=== PATIENT | female | born 1995 | race Caucasian/White ===

== ENCOUNTER 2022-06-25 08:34 | Emergency (ER) | payer BC, SELFPAY ==
--- NOTE | 2022-06-25 08:40 | ED.SKABFB ---
HPI - Skin/Abscess/Foreign Bdy General Chief complaint: Skin/Abscess/Foreign Body Stated complaint: RED SPOT ON NOSE & EAR Time Seen by Provider: 06/25/22 08:40 Source: patient and RN notes reviewed History of Present Illness HPI narrative: Patient is a 26-year-old female who presents the urgent care with complaints of a red spot to the left side of the nose and on the left ear. Patient states she noticed it yesterday and was taking Claritin due to some of the swelling and redness. Patient denies of any fevers, nausea or vomiting. States that she does feel like there is some swelling under the left eye as well as tenderness. Patient states she does suffer from acne but tends to have it under control. States that the only recent change in facial products was using some of her old adapalene to the nose a couple nights ago. Patient states that she is mostly concerned with the area because she is getting on Wednesday. No other acute complaints. No acute distress noted. Patient aware of the plan of care. Some parts of this dictation were generated by voice recognition software and may contain typographical and/or grammatical inaccuracies. Related Data Allergies Allergy/AdvReac Type Severity Reaction Status Date / Time nut - unspecified Allergy Anaphylaxis Verified 06/25/22 08:50 Review of Systems Review of Systems: CONSTITUTIONAL: Denies fever, chills, or sweats. EYES: Denies visual changes, redness, or discharge. ENT: Denies rhinorrhea, congestion, sore throat, or otalgia. CARDIOVASCULAR: Denies chest pain, palpitations, or edema. RESPIRATORY: Denies cough or dyspnea. GASTROINTESTINAL: Denies abdominal pain, nausea, vomiting, or diarrhea. GENITOURINARY: Denies dysuria or hematuria. SKIN: Reports of a painful sore to the left side of the nose and on the left ear MUSCULOSKELETAL: Denies back pain, joint pain, or myalgia. NEUROLOGIC: Denies headache, numbness, or weakness. All other systems reviewed are negative, except as documented in HPI. [facility] Social History Social History (Updated 09/04/19 @ 13:29 by La Nena Johnston, [employer]) Smoking status: Never smoker Alcohol intake: current Alcohol use details: Social Substance use: never Gender identity (if verbalized by the patient): Female Spiritual care concerns: No Comments At the time of my signature, I reviewed and agree with the nursing past medical, surgical, social, and family history. There is no relevant family history pertinent to the patient complaint. Exam Narrative: GENERAL: This is a well-nourished, well-developed patient, in no apparent distress. HEAD: normocephalic, atraumatic. EYES: PERRL. Sclera clear/white. Vision is grossly intact. EARS: External ears normal NOSE: External nose normal with no obvious nasal discharge, nares without redness, no rhinorrhea. THROAT: Mucous membranes moist NECK: Neck supple SKIN: 0.25 circular nonraised cystic acne vulgaris noted to the left side of the nose with tenderness and surrounding erythema. 0.25 circular raised cystic acne vulgaris noted to the left ear with surrounding erythema, tenderness and NEURO: awake, alert, and oriented to person, place and time. There were no obvious focal neurologic abnormalities. EXTREMITIES: No clubbing, cyanosis, or edema. Course Course Level of Care: Express Care Visit Vital Signs Vital signs: Vital Signs Temperature 98.7 F 06/25/22 08:43 Pulse Rate 95 06/25/22 08:43 Respiratory Rate 20 06/25/22 08:43 Blood Pressure 123/82 06/25/22 08:43 Pulse Oximetry 100 06/25/22 08:43 Temperature 98.7 F 06/25/22 08:43 Pulse Rate 95 06/25/22 08:43 Respiratory Rate 20 06/25/22 08:43 Blood Pressure 123/82 06/25/22 08:43 Pulse Oximetry 100 06/25/22 08:43 Reviewed MDM - Skin/Abscess/Foreign Bdy MDM Narrative Medical decision making narrative: Advised the patient to stop rubbing and touching the areas. Try to keep your hands off your face.
[2022-06-25 08:43] VITALS: BP 123/82; PULSE 95; RESP 20; TEMP 37.1; O2SAT 100
== END 2022-06-25 09:00 | disposition home or self-care (01) ==
PROVIDERS: Emergency Provider Nurse Practitioner Family
DX: L70.0 Acne vulgaris (principal)
CPT/HCPCS: 99213; G0463

== ENCOUNTER 2022-09-12 15:46 | Emergency (ER) | payer BC, SELFPAY ==
[2022-09-12 16:44] VITALS: BP 120/75; PULSE 79; RESP 16; TEMP 36.9; O2SAT 100
--- NOTE | 2022-09-12 16:54 | ED.EAR ---
HPI - Ear Problem General Chief complaint: Ear Stated complaint: ear pressure,vertigo Time Seen by Provider: 09/12/22 16:55 Source: patient Mode of arrival: ambulatory Limitations: no limitations History of Present Illness HPI Narrative: 26 y/o female presented for c/o bilateral ear pressure and dizziness worsening over the last2 days. Endorses nausea and headache at onset, and has had some tinnitus. Dizziness is described as room spinning, not always affected by head positions. She has taken 3 negative home covid tests. Taking Sudafed at times, along with tylenol and vaporizer for symptoms. Endorses history of ear pressure, but never this bad, and is scheduled to see ENT 10/01/22. MD Complaint: ear pain Related Data Allergies Allergy/AdvReac Type Severity Reaction Status Date / Time nut - unspecified Allergy Anaphylaxis Verified 06/25/22 08:50 Review of Systems Review of Systems: CONSTITUTIONAL: Denies malaise, chills, or fever. EYES: Denies visual changes, redness, or discharge. ENT: Denies sinus pain, and sore throat. Reports ear pain CARDIOVASCULAR: Denies chest pain, palpitations, or edema. RESPIRATORY: Denies cough or dyspnea. GASTROINTESTINAL: Denies abdominal pain, nausea, vomiting, diarrhea SKIN: Denies rash or itching. MUSCULOSKELETAL: Denies myalgia. All systems reviewed & are unremarkable except as noted in HPI and below PMFSH Social History Social History Smoking status: Never smoker Alcohol intake: current Alcohol use details: Social Substance use: never Gender identity (if verbalized by the patient): Female Spiritual care concerns: No Comments At time of signature, agree with nursing past medical, surgical, social and family history. There is no relevant family history pertinent to the presenting complaint Exam Narrative: GENERAL: Well-appearing, well-nourished, and in no acute distress. HEAD: Normocephalic EYES: PERRLA, conjunctivae clear ENT: Nares clear. Mucous membranes moist. TMs pearly mancia with dull light reflex and mild clear effusion bilaterally; no tragal tenderness. Oropharynx not erythematous without lesions. CHEST: Clear to auscultation, breath sounds equal. No wheezing, rhonchi, rales, or stridor. HEART: Regular rate and rhythm. No murmur heard. SKIN: Warm, dry, no rash. NEURO: Alert and oriented x3. PSYCH: Normal mood and affect Course Course Emergency Course: Patient is aware of diagnosis, understands and agrees to treatment plan. Anticipatory guidance given. Patient agrees to follow-up as directed and is aware of reasons to seek care at the emergency department. Portions of this record may have been created with voice recognition software Level of Care: Express Care Visit Vital Signs Vital signs: Vital Signs Temperature 98.4 F 09/12/22 16:44 Pulse Rate 79 09/12/22 16:44 Respiratory Rate 16 09/12/22 16:44 Blood Pressure 120/75 09/12/22 16:44 Pulse Oximetry 100 09/12/22 16:44 Temperature 98.4 F 09/12/22 16:44 Pulse Rate 79 09/12/22 16:44 Respiratory Rate 16 09/12/22 16:44 Blood Pressure 120/75 09/12/22 16:44 Pulse Oximetry 100 09/12/22 16:44 Reviewed Medical Decision Making MDM Narrative Medical decision making narrative: Reports some improvement in symptoms after meclizine. Advised supportive measures and signs/symptoms to go to the ER. Patient is appropriate for outpatient treatment and follow-up. Differential Diagnosis Differential Diagnosis: Coronavirus, strep pharyngitis, allergic rhinitis, upper respiratory tract infection, sinusitis, rhinosinusitis, nasopharyngitis, viral pharyngitis, otitis media, otitis externa, eustachian tube dysfunction, foreign body, cerumen impaction. Vital Signs Vital Signs: Vital Signs Temperature 98.4 F 09/12/22 16:44 Pulse Rate 79 09/12/22 16:44 Respiratory Rate 16 09/12/22 16:44 Blood Pressure 120/75 09/12/22 16:44
[2022-09-12] MEDS: MECLIZINE HCL 25 MG TABLET PO (17:09)
== END 2022-09-12 17:41 | disposition home or self-care (01) ==
PROVIDERS: Emergency Provider Nurse Practitioner Family
DX: R42 Dizziness and giddiness (principal)
CPT/HCPCS: 99213; A9270; G0463

== ENCOUNTER 2024-10-28 09:02 | Emergency (ER) | payer OTHER, BC, SELFPAY ==
--- OUTSIDE RECORDS SUMMARY | 2024-10-28 09:05 | XMS_ITS | Patient Health Summary ---
Author Organization [facility] Address [address] [place] [address] Care Team Providers Care [place] Operator Name Role Phone Courtney Loving RN Unavailable [phone] Leelee Browne MD Unavailable Note from [facility],non-owned Affiliates and Associated Physician Practices is amultiple site organization consisting of ambulatory clinics and hospital sitesin [place], [place], [place] and [place]. This disclosure is being madepursuant to the Care Everywhere program and may not contain all information available regarding this patient. Last updated 18.[facility] Allergies * Banana(Itching) * Peanut Butter Flavor(Anaphylaxis) -High Criticality * Tree Nuts(Anaphylaxis) -High Criticality Medications * Be aware that medications may not be up to date on this document. Alwaysverify current medications with the patient. * Loratadine (CLARITIN) 10 MG CAPS Take by mouth once daily. * ethyndiol diacetate-ethinyl estradiol (DEMULEN ; KELNOR ; ZOVIA ) 1-35 MG-MCG tablet(Started 12/17/2017) Take 1 tablet by mouth once daily * Melatonin 2.5 MG Take by mouth as needed * Cyanocobalamin (B-12 PO) Active Problems Problem Noted Date Diagnosed Date Migraine 06/08/2014 Allergic rhinitis 06/08/2014 Pyelonephritis, acute 05/29/2014 Social History Tobacco Use Types Packs/Day Years Used Date Smoking Tobacco: Never Smokeless Tobacco: Never Alcohol Use Standard Drinks/Week Comments No 0 (1 standard drink = 0.6 oz pur e alcohol) Sex and Gender Information Value Date Recorded Sex Assigned at Not on file Gender Identity Not on file Sexual Orientation Not on file Last Filed Vital Signs Vital Sign Reading Time Taken Comments Blood Pressure 116/64 07/01/2020 4:25 PM CDT Pulse 79 07/01/2020 4:25 PM CDT Temperature 36.8 C (98.2 F) 07/01/2020 4:25 PM CDT Respiratory Rate 16 07/01/2020 4:25 PM CDT Oxygen Saturation 98% 07/01/2020 4:25 PM CDT Inhaled Oxygen Concentration - - Weight 53.5 kg (118 lb) 07/01/2020 4:25 PM CDT Height 162.6 cm (5' 4 ) 07/01/2020 4:25 PM CDT Body Mass Index 20.25 07/01/2020 4:25 PM CDT Procedures * SKIN TEST PPD - POINT OF CARE(Performed 07/01/2020) Performed for PPD screening test * CULTURE RESPIRATORY UPPER(Performed 03/06/2019) Performed for Acute pharyngitis, unspecified etiology * STREP A SCREEN - POINT OF CARE (AMB) STL(Performed 03/06/2019) Performed for Acute pharyngitis, unspecified etiology * SKIN TEST PPD - POINT OF CARE(Performed 07/04/2018) Performed for Encounter for PPD test * URINALYSIS REFLEX TO MICROSCOPIC NO CULTURE(Performed 05/06/2015) * HCG BETA BLOOD QUANTITATIVE(Performed 05/06/2015) * COMPREHENSIVE METABOLIC PANEL(Performed 05/06/2015) * CBC W AUTO DIFFERENTIAL(Performed 05/06/2015) * URINALYSIS - POCT (IP) URGENT CARE(Performed 05/06/2015) * CULTURE URINE(Performed 05/06/2015) * URINALYSIS - POCT (IP) URGENT CARE(Performed 05/06/2015) * CULTURE URINE(Performed 04/23/2015) * URINALYSIS - POCT (IP) URGENT CARE(Performed 04/23/2015) * XR TIBIA FIBULA RIGHT 2VW(Performed 02/14/2015) Performed for Leg pain, right * HCG URINE QUALITATIVE - POCT (IP) URGENT CARE(Performed 02/14/2015) * URINALYSIS MICROSCOPIC ONLY REFLEXED(Performed 01/25/2015) Performed for Screening for diabetes mellitus, Routine general medical examination at a [facility] * URINALYSIS REFLEX MICROSCOPIC REFLEX CULTURE(Performed 01/25/2015) Performed for Screening for diabetes mellitus, Routine general medical examination at a [facility] * COMPREHENSIVE METABOLIC PANEL(Performed 01/25/2015) Performed for Screening for diabetes mellitus, Routine general medical examination at a [facility] * CBC W AUTO DIFFERENTIAL(Performed 01/25/2015) Performed for Screening for diabetes mellitus, Routine general medical examination at a [facility] * HEMOGLOBIN A1C(Performed 01/25/2015) Performed for Screening for diabetes mellitus, Routine general medical examination at a [facility] * TSH(Performed 01/25/2015) Performed for Screening for diabetes mellitus, Routine general medical examination at a [facility] * BASIC METABOLIC PANEL (CALCIUM TOTAL)(Performed 05/28/2014) * CULTURE URINE(Performed 05/27/2014) * CULTURE BLOOD(Performed 05/26/2014) * CULTURE BLOOD(Performed 05/26/2014) * CT ABDOMEN PELVIS W CONTRAST(Performed 05/26/2014) Performed for Abdominal pain, RLQ * HCG URINE QUALITATIVE(Performed 05/25/2014) * URINE MICROSCOPIC ONLY REFLEX TO CULTURE(Performed 05/25/2014) * URINALYSIS REFLEX MICROSCOPIC REFLEX CULTURE(Performed 05/25/2014) * CULTURE URINE(Performed 05/25/2014) * COMPREHENSIVE METABOLIC PANEL(Performed 05/25/2014) * CBC W AUTO DIFFERENTIAL(Performed 05/25/2014) Results * (ABNORMAL) SKIN TEST PPD - POINT OF CARE (07/01/2020 4:22 PM CDT) Only the most recent of2 resultswithin the time period is included. PPD 0mm(Negativ e) Other MISCELLANEOUS SAMPLE S / Unknown 07/01/2020 4:22 PM CDT Germaine Garcia APRN-IMPREGNATION OPERATOR LAB - POINT OF CA RE ORDERABLES * CULTURE RESPIRATORY UPPER (03/06/2019 9:25 AM CDT) Upper Respiratory Culture Final report [facility] ACCOUNT BILL Result 1 [facility] ACCOUNT BILL Comment:Routine respiratory armen Microbiology ENTIRE THROAT (SURFACE REGION OF NECK) / Unknown 03/06/2019 9:25 AM CDT 03/06/2019 Narrative Resulting Agency Comment Lab Testing performed at: [facility] [place] [address] [facility] [id number] Germaine Garcia APRN-IMPREGNATION OPERATOR LAB - MICROBIOLOG Y ORDERABLES [facility] ACCOUNT BILL [address] [place] [address] * STREP A SCREEN (03/06/2019 9:19 AM CDT) Strep A Rapid POCT Negative Negative Strep A Internal Control Present Lot # [id number] Expiration Date Throat ENTIRE THROAT (SURFACE REGION OF NECK) / Unknown 03/06/2019 9:19 AM CDT Germaine Garcia APRN-[facility] LAB - POINT OF CA RE ORDERABLES * (ABNORMAL) URINALYSIS ROUTINE AUTO (05/06/2015 1:04 PM CDT) Color UA Yellow Straw, Yellow, Dark Yellow 05/06/2015 1:46 PM CDT [facility] Clarity UA Cloudy 05/06/2015 1:46 PM CDT [facility] Specific [place] UA 1.018 1.005 - 1.030 05/06/2015 1:46 PM CDT [facility] pH UA 7.5 5.0 - 8.0 pH 05/06/2015 1:46 PM CDT [facility] Protein UA Negative Negative 05/06/2015 1:46 PM CDT [facility] Blood UA Negative Negative 05/06/2015 1:46 PM CDT [facility] Leukocyte UA 2+(A) Negative 05/06/2015 1:46 PM CDT [facility] Nitrite UA Negative Negative 05/06/2015 1:46 PM CDT [facility] Glucose UA Negative Negative 05/06/2015 1:46 PM CDT [facility] Ketone UA 1+(A) Negative 05/06/2015 1:46 PM CDT [facility] Bilirubin UA Negative Negative 05/06/2015 1:46 PM CDT [facility] Urobilinogen UA 0.2 0.1 - 1.0 EU/dL 05/06/2015 1:46 PM CDT [facility] WBC UA Auto 10-20(A) 0-2, 2-5 # /hpf 05/06/2015 1:46 PM CDT [facility] RBC UA Auto 2-5 0-2, 2-5 # /hpf 05/06/2015 1:46 PM CDT [facility] Epithelial Cell UA Auto 5-10(A) 0-2, 2-5 # /hpf 05/06/2015 1:46 PM CDT [facility] Bacteria UA Auto 1+(A) None seen 05/06/2015 1:46 PM CDT [facility] Hyaline Casts UA Auto 0-2 0 - 2 #/lpf 05/06/2015 1:46 PM CDT [facility] Urine URINE SPECIMEN OBTAINED BY CLEAN CATCH PROCEDURE / Unknown 05/06/2015 1:04 PM CDT 05/06/2015 1:09 PM CDT Yonis Chairez MD LAB - URINALYSIS ORD ERABLES [facility] [address] [place] [address] * (ABNORMAL) CBC W AUTO DIFFERENTIAL (05/06/2015 12:37 PM CDT) Only the most recent of3 resultswithin the time period is included. WBC 12.0(H) 4.4 - 10.7 x10^9/L 05/06/2015 12:44 PM CDT [facility] WBC Corrected x10^9/L 05/06/2015 12:44 PM CDT [facility] RBC 4.59 3.80 - 5.20 x10^12/L 05/06/2015 12:44 PM CDT [facility] Hemoglobin 13.7 12.0 - 15.6 gm/dL 05/06/2015 12:44 PM CDT [facility] Hematocrit 40.5 35.9 - 45.5 % 05/06/2015 12:44 PM CDT [facility] MCV 88.2 80.7 - 98.3 fl 05/06/2015 12:44 PM CDT [facility] MCH 29.8 26.7 - 34.0 pg 05/06/2015 12:44 PM [facility] MCHC 33.8 30.8 - 35.9 gm/dL 05/06/2015 12:44 PM [facility] Platelet Count 178 153 - 416 x10^9/L 05/06/2015 12:44 PM [facility] RDW-CV 12.5 12.1 - 14.9 % 05/06/2015 12:44 PM [facility] MPV 9.1(L) 9.4 - 12.9 fl 05/06/2015 12:44 PM [facility] Neutrophils % 83.7(H) 44.0 - 73.0 % 05/06/2015 12:44 PM [facility] Lymphocytes % 8.6(L) 20.0 - 43.0 % 05/06/2015 12:44 PM [facility] Monocytes % 5.9 5.0 - 13.0 % 05/06/2015 12:44 PM [facility] Eosinophils % 1.4 0.0 - 6.0 % 05/06/2015 12:44 PM [facility] Basophils % 0.2 0.0 - 2.0 % 05/06/2015 12:44 PM [facility] Immature Granulocytes 0.2 0 - 1 % 05/06/2015 12:44 PM [facility] Neutrophil Absolute 10.06(H) 2.01 - 7.14 x10^9/L 05/06/2015 12:44 PM [facility] Lymphocytes Absolute 1.03(L) 1.07 - 3.94 x10^9/L 05/06/2015 12:44 PM [facility] Monocytes Absolute 0.71 0.26 - 1.07 x10^9/L 05/06/2015 12:44 PM [facility] Eosinophils Absolute 0.17 0 - 0.47 x10^9/L 05/06/2015 12:44 PM [facility] Basophils Absolute 0.02 0 - 0.08 x10^9/L 05/06/2015 12:44 PM [facility] Immature Granulocytes Absolute 0.02 0.00 - 0.06 x10^9/L 05/06/2015 12:44 PM [facility] Blood BLOOD SPECIMEN / Unknown 05/06/2015 12:37 PM CDT 05/06/2015 12:39 PM CDT Yonis Chairez MD LAB - HEMATOLOGY ORD ERABLES [facility] [address] [place] [address] * (ABNORMAL) COMPREHENSIVE METABOLIC PANEL (05/06/2015 12:37 PM CDT) Only the most recent of3 resultswithin the time period is included. [facility] [address] Glucose 86 74 - 106 mg/dL 05/06/2015 12:58 PM CDT [facility] Sodium 135(L) 136 - 145 mmol/L 05/06/2015 12:58 PM CDT [facility] Potassium 3.8 3.5 - 5.1 mmol/L 05/06/2015 12:58 PM CDT [facility] Chloride 101 98 - 107 mmol/L 05/06/2015 12:58 PM CDT [facility] CO2 27 22 - 31 mmol/L 05/06/2015 12:58 PM CDT [facility] Calcium 9.6 8.5 - 10.1 mg/dL 05/06/2015 12:58 PM CDT [facility] Anion Gap 7 5 - 20 mmol/L 05/06/2015 12:58 PM CDT [facility] BUN 8 7 - 21 mg/dL 05/06/2015 12:58 PM CDT [facility] Creatinine 0.73 0.50 - 1.30 mg/dL 05/06/2015 12:58 PM CDT [facility] Alkaline Phosphatase 60 38 - 126 U/L 05/06/2015 12:58 PM CDT [facility] ALT 22 12 - 78 U/L 05/06/2015 12:58 PM CDT [facility] AST 17 5 - 40 U/L 05/06/2015 12:58 PM CDT [facility] Protein Total 7.8 6.4 - 8.2 gm/dL 05/06/2015 12:58 PM CDT [facility] Albumin 3.9 3.4 - 5.0 gm/dL 05/06/2015 12:58 PM CDT [facility] Bilirubin Total 0.9 0.2 - 1.0 mg/dL 05/06/2015 12:58 PM CDT [facility] eGFR by MDRD >60 >60 mL/min/1.7 3m2 05/06/2015 12:58 PM CDT [facility] eGFR by MDRD >60 >60 mL/min/1.7 3m2 05/06/2015 12:58 PM CDT [facility] Blood BLOOD SPECIMEN / Unknown 05/06/2015 12:37 PM CDT 05/06/2015 12:39 PM CDT Yonis Chairez MD LAB - CHEMISTRY LATOYA HOWE Performing Organization Address [facility] Co de Phone Number [facility] [address] [place] [address] * HCG BETA BLOOD QUANTITATIVE (05/06/2015 12:37 PM CDT) hCG Quantitative <1 mIU/mL 05/06/2015 1:04 PM CDT [facility] Blood BLOOD SPECIMEN / Unknown 05/06/2015 12:37 PM CDT 05/06/2015 12:39 PM CDT Narrative [facility] - 05/06/2015 1:04 PM CDT HCG Reference Range, mIU/ml: Males 0-2.0 Non Females 0-6.0 Perimenopausal Females ages 41-55* 0-7.7 Postmenopausal Females age >55* 0-14 Females, Weeks after LMP 0.2-1 week 5-50 1 - 2 weeks 50-500 2 - 3 weeks 100-5000 3 - 4 weeks 500-10,000 4 - 5 weeks 1000-50,000 5 - 6 weeks 10,000-100,000 6 - 8 weeks 15,000-200,000 2 - 3 months 10,000-100,000 Trophoblastic Disease >100,000 *In higher than expected HCG in females > age 40, a serum FSH >20 IU/L makes unlikely. Yonis Chairez MD LAB - CHEMISTRY LATOYA HOWE Performing Organization Address [facility] Co de Phone Number [facility] [address] [place] [address] * (ABNORMAL) URINALYSIS - POCT (IP) URGENT CARE (05/06/2015 11:03 AM CDT) Only the most recent of3 resultswithin the time period is included. Glucose UA Negative Negative [facility] PO[facility] TEST[facility] Bilirubin UA Negative Negative [facility] PO CT TESTING Ketone UA Negative Negative [facility] TEST[facility] Specific [place] UA POCT 1.005 1.000 - 1.030 [facility] Blood UA Trace Negative [facility] pH UA 7.0 5.0 - 8.0 pH units [facility] PO[facility] TEST[facility] Protein UA Negative Negative [facility] PO[facility] TEST[facility] Urobilinogen UA 0.2 0.2 - 1.0 EU/dL [facility] PO[facility] TEST[facility] Nitrite UA Negative Negative [facility] PO[facility] TEST[facility] Leukocyte UA 2+ Negative [facility] PO CT TESTING QC Verified Yes Yes [facility] POC T TESTING Urine specimen (specimen) URINE / Unknown 05/06/2015 11:03 AM CDT Georgette Youssef [facility] LAB - POINT OF CAR E ORDERABLES Performing Organization Address City/[facility]/ZIP Co de Phone Number [facility] POCT TESTING [address] [id number] [phone] * CULTURE URINE (05/06/2015 10:59 AM CDT) Only the most recent of4 resultswithin the time period is included. Culture 10,000-50,000 CFU/mL normal urogenital armen VERONICA 05/08/2015 6:43 AM CDT [facility] Urine URINE SPECIMEN OBTAINED BY CLEAN CATCH PROCEDURE / Unknown 05/06/2015 10:59 AM CDT 05/06/2015 7:20 PM CDT Georgette Youssef [facility] LAB - MICROBIOLOGY ORDERABLES [facility] [address] [place] [address], [facility] [phone] * XR TIBIA AND FIBULA 2 VW RIGHT (02/14/2015 10:52 AM CDT) Anatomical Region Laterality Modality Lower Extremity Radiographic Amy ging 02/14/2015 11:0 3 AM CDT Narrative 02/14/2015 11:03 AM CDT 2 views right tibia and fibula Indication: Right lower leg pain. Recent injury. Findings: There is no evidence of acute fracture or bony malalignment. Procedure Note Vincenzo Hancock MD - 02/14/2015 2 views right tibia and fibula Indication: Right lower leg pain. Recent injury. Findings: There is no evidence of acute fracture or bony malalignment. Danna Hoyt APRN-IMPREGNATION OPERATOR DIAGNOSTIC IMAGIN G ORDERABLES * HCG URINE QUALITATIVE - POCT (IP) URGENT CARE (02/14/2015 10:44 AM CDT) HCG Qual Urine Negative Negative [facility] QC Verified Yes Yes [facility] POC T TESTING Urine specimen (specimen) URINE / Unknown 02/14/2015 10:44 AM CDT Danna BOWLING LAB - POINT OF CA RE ORDERABLES [facility] [address] [phone] * (ABNORMAL) URINALYSIS MICROSCOPIC ONLY REFLEXED (PO REF LAB) (01/25/2015 9:33 AM CDT) WBC UA 0-5 0 - 5 /hpf [facility] INSURANCE BILL RBC UA 0-2 0 - 2 /hpf [facility] INSURANCE BILL Epithelial Cells (non renal) >10(A) 0 - 10 /hpf [facility] INSURANCE BILL Epithelial Cells (renal) NOT NEEDED [facility] INSURANCE BILL Comment:Ancillary determined the test is not needed Casts ua NOT NEEDED [facility] INSURANCE BILL Comment:Ancillary determined the test is not needed Casts UA NOT NEEDED [facility] INSURANCE BILL Comment:Ancillary determined the test is not needed Crystals UA Present(A) N/A [facility] INSURANCE BILL Crystals UA Calcium Oxalate N/A [facility] INSURANCE BILL Mucus UA Present Not Estab. [facility] INSURANCE BILL Bacteria UA Few None seen/Few [facility] INSURANCE BILL Yeast UA NOT NEEDED [facility] INSURANCE BILL Comment:Ancillary determined the test is not needed Trichomonas UA NOT NEEDED [facility] INSURANCE BILL Comment:Ancillary determined the test is not needed Comment Urine NOT NEEDED [facility] INSURANCE BILL Comment:Ancillary determined the test is not needed 01/25/2015 9:33 AM CDT 01/25/2015 12:31 PM CDT Narrative Resulting Agency Comment [facility] [address] [phone] Baylee Chou MD LAB - URINALYSIS OR DERABLES [facility] INSURANCE BILL * (ABNORMAL) URINALYSIS ROUTINE W/REFLEX TO CULTURE (01/25/2015 9:33 AM CDT) Only the most recent of2 resultswithin the time period is included. Specific [place] UA >=1.030(A) 1.005 - 1.030 [facility] INSURANCE BILL pH UA 6.0 5.0 - 7.5 [facility] INSURANCE BILL Color UA Yellow Yellow [facility] INSURANCE BILL Appearance Clear Clear [facility] INSURANCE BILL Leukocyte UA Negative Negative [facility] INSURANCE BILL Protein UA Trace Negative/Tra ce [facility] INSURANCE BILL Glucose UA Negative Negative [facility] INSURANCE BILL Glucose Reflex NOT NEEDED [facility] INSURANCE BILL Comment:Ancillary determined the test is not needed Ketone UA Negative Negative [facility] INSURANCE BILL Occult Blood Urine Negative Negative [facility] INSURANCE BILL Bilirubin UA Negative Negative [facility] INSURANCE BILL Urobilinogen 0.2 0.0 - 1.9 mg/dL [facility] INSURANCE BILL Nitrite UA Negative Negative [facility] INSURANCE BILL Microscopic Examination Urine [facility] INSURANCE BILL Comment:Microscopic follows if indicated. Microscopic Examination Urine See below: [facility] INSURANCE BILL Comment:Microscopic was mikael cated and was performed. Urinalysis Reflex [facility] INSURANCE BILL Comment:This specimen will n ot reflex to a Urine Culture. Urine specimen (specimen) URINE SPECIMEN FROM URINARY BLADDER / Unknown 01/25/2015 9:33 AM CDT 01/25/2015 12:31 PM CDT Narrative Resulting Agency Comment [facility] [place] [id number] [facility] [phone] Baylee Chou MD LAB - URINALYSIS OR DERABLES Performing Organization Address [facility] de Phone Number [facility] INSURANCE BILL * HEMOGLOBIN A1C (01/25/2015 9:33 AM CDT) [facility] Hemoglobin A1c 5.2 4.8 - 5.6 % [facility] INSURANCE BILL Comment: . Increased risk for diabetes: 5.7 - 6.4 Diabetes: >6.4 Glycemic control for adults with diabetes: <7.0 Whole blood specimen (specimen) BLOOD SPECIMEN WITH EDTA / Unknown 01/25/2015 9:33 AM CDT 01/25/2015 12:32 PM CDT Narrative Resulting Agency Comment [address] [phone] Baylee Chou MD LAB - CHEMISTRY ORD ERABLES Performing Organization Address [facility] Phone Number [facility] INSURANCE BILL * TSH (01/25/2015 9:32 AM CDT) [facility] TSH 2.090 0.450 - 4.500 uIU/mL [facility] INSURANCE BILL Blood specimen (specimen) BLOOD SPECIMEN / Unknown 01/25/2015 9:32 AM CDT 01/25/2015 12:32 PM CDT Narrative Resulting Agency Comment [address] [phone] Baylee Chou MD LAB - CHEMISTRY ORD ERABLES Performing Organization Address [facility] de Phone Number [facility] INSURANCE BILL * (ABNORMAL) BASIC METABOLIC PANEL (CALCIUM TOTAL) (05/28/2014 5:14 AM CDT) [facility] Glucose 73(L) 74 - 106 mg/dL 05/28/2014 6:11 AM CDT [facility] Sodium 133(L) 136 - 145 mmol/L 05/28/2014 6:11 AM CDT [facility] Potassium 3.6 3.5 - 5.1 mmol/L 05/28/2014 6:11 AM CDT [facility] Chloride 105 98 - 107 mmol/L 05/28/2014 6:11 AM CDT [facility] CO2 20(L) 22 - 31 mmol/L 05/28/2014 6:11 AM CDT [facility] Calcium 9.2 8.5 - 10.1 mg/dL 05/28/2014 6:11 AM CDT [facility] Anion Gap 8 5 - 15 mmol/L 05/28/2014 6:11 AM CDT [facility] BUN 3(L) 7 - 21 mg/dL 05/28/2014 6:11 AM CDT [facility] Creatinine 0.39(L) 0.50 - 1.30 mg/dL 05/28/2014 6:11 AM CDT [facility] eGFR by MDRD >60 >60 mL/min/1.7 3m2 05/28/2014 6:11 AM CDT [facility] eGFR by MDRD >60 >60 mL/min/1.7 3m2 05/28/2014 6:11 AM CDT [facility] Blood BLOOD SPECIMEN / Unknown 05/28/2014 5:14 AM CDT 05/28/2014 5:45 AM CDT Mihai Julian MD LAB - CHEMISTRY ORDTigre [facility] [address] [place] [address] * CULTURE BLOOD (05/26/2014 5:16 PM CDT) Only the most recent of2 resultswithin the time period is included. Culture No Growth VERONICA 06/01/2014 5:06 AM CDT [facility] Blood PERIPHERAL BLOOD / Unknown 05/26/2014 5:16 PM CDT 05/26/2014 5:21 PM CDT Mihai Julian MD LAB - MICROBIOLOGY O RDERABLES [facility] [address] [facility] [place] [address], [facility] * CT ABDOMEN AND PELVIS WITH IV CONTRAST (05/26/2014 12:33 AM CDT) Anatomical Region Laterality Modality Abdomen, Pelvis Computed Tomogra phy 05/26/2014 12:1 6 AM CDT Impressions 05/26/2014 12:21 AM CDT Subtle areas of decreased cortical enhancement are noted in the right kidney. This type of finding can be seen with pyelonephritis. Unfortunately we do not have delayed equilibrium phase images to evaluate the kidneys. Therefore close correlation with patient's clinical and laboratory findings is recommended for further evaluation. A small amount of free fluid is present in the pelvis in association with a 2.1 cm left adnexal cyst. Narrative 05/26/2014 12:[address] ABDOMEN WITH CONTRAST CT PELVIS WITH CONTRAST INDICATION: Patient complains of right lower abdominal pain radiating to the right flank with urine onset today. Nausea. TECHNIQUE: The CT scan of the abdomen is carried out during and following administration of 80 mL Omnipaque 350 contrast IV. The images of the pelvis were performed with contrast. Sagittal and coronal reformatted images were performed with the CT scanner. FINDINGS: CT Abdomen: No free fluid can identified the upper abdomen. The liver is normal in size. The spleen is at the upper limits of normal in size the kidneys are normal in size bilaterally. Subtle stripes of decreased CT enhancement can be seen in the cortex of the right kidney. This includes the upper pole and mid kidney. Unfortunately do not have delayed equilibrium phase images available to evaluate the kidneys, ureters or the bladder. Gallbladder is normal in size. The pancreas is grossly normal in size but cannot be from adjacent bowel loops completely. There are no dilated bowel loops in the upper abdomen. The lung bases are clear of confluent infiltrates. CT Pelvis: A small amount of free fluid is present in the pelvis. Bladder is smooth in outline but is not filled with the IV contrast material. A rounded low CT density collection is noted in the left adnexa. This measures approximately 2.1 cm in size. The appendix may be partially visualized on one of the axial images and if so is normal in size. This report was transcribed with a computerized speech recognition system. In an effort to expedite patient care, it has not been adjusted for typographical, grammatical or syntax problems by a trained medical records director. For questions about the report, please contact the Radiology Department. . There are no dilated bowel loops in the pelvis. Procedure Note Jesus Manuel Dixon MD - 05/26/[address] CT [address] WITH CONTRAST CT PELVIS WITH CONTRAST INDICATION: Patient complains of right lower abdominal pain radiating to the right flank with urine onset today. Nausea. TECHNIQUE: The CT scan of the abdomen is carried out during and following administration of 80 mL Omnipaque 350 contrast IV. The images of the pelvis were performed with contrast. Sagittal and coronal reformatted images were performed with the CT scanner. FINDINGS: CT Abdomen: No free fluid can identified the upper abdomen. The liver is normal in size. The spleen is at the upper limits of normal in size the kidneys are normal in size bilaterally. Subtle stripes of decreased CT enhancement can be seen in the cortex of the right kidney. This includes the upper pole and mid kidney. Unfortunately do not have delayed equilibrium phase images available to evaluate the kidneys, ureters or the bladder. Gallbladder is normal in size. The pancreas is grossly normal in size but cannot be from adjacent bowel loops completely. There are no dilated bowel loops in the upper abdomen. The lung bases are clear of confluent infiltrates. CT Pelvis: A small amount of free fluid is present in the pelvis. Bladder is smooth in outline but is not filled with the IV contrast material. A rounded low CT density collection is noted in the left adnexa. This measures approximately 2.1 cm in size. The appendix may be partially visualized on one of the axial images and if so is normal in size. This report was transcribed with a computerized speech recognition system. In an effort to expedite patient care, it has not been adjusted for typographical, grammatical or syntax problems by a trained medical records director. For questions about the report, please contact the Radiology Department. . There are no dilated bowel loops in the pelvis. IMPRESSION Subtle areas of decreased cortical enhancement are noted in the right kidney. This type of finding can be seen with pyelonephritis. Unfortunately we do not have delayed equilibrium phase images to evaluate the kidneys. Therefore close correlation with patient's clinical and laboratory findings is recommended for further evaluation. A small amount of free fluid is present in the pelvis in association with a 2.1 cm left adnexal cyst. Reggie Cassidy MD CT ORDERABLES * HCG URINE QUALITATIVE (05/25/2014 11:05 PM CDT) hCG Qualitative Urine Negative Negative 05/25/2014 11:05 PM CDT [facility] Urine URINE / Unknown 05/25/2014 1 1:05 PM CDT 05/25/2014 11:05 PM CDT Reggie Cassidy MD LAB - URINALYSIS O RDKAILYN Performing Organization Address City/[facility] Co de Phone Number [facility] [address] [place] [address] * (ABNORMAL) URINALYSIS MICROSCOPIC ONLY W/REFLEX CULTURE (05/25/2014 10:42 PM CDT) RBC UA 10-20(A) 0-2, 2-5 # /hpf 05/25/2014 11:52 PM CDT [facility] WBC UA >100(A) 0-2, 2-5 # /hpf 05/25/2014 11:52 PM CDT [facility] Bacteria UA 4+(A) None Seen 05/25/2014 11:52 PM CDT [facility] Epithelial Cell UA 2-5 0-2, 2-5 05/25/2014 11:52 PM CDT [facility] Urine URINE SPECIMEN OBTAINED BY CLEAN CATCH PROCEDURE / Unknown 05/25/2014 10:42 PM CDT 05/25/2014 10:47 PM CDT Reggie Cassidy MD LAB - URINALYSIS O NICK Performing Organization Address [facility] Co de Phone Number [facility] [address] [place] [address] Care Teams [place]keag Operator Relationship Specialty Start Date End Date Courtney Loving RN Floor Nurse 05/28/14 Leelee Browne MD Referring Physician Obstetrics and Gynecology 06/08/14
--- OUTSIDE RECORDS SUMMARY | 2024-10-28 09:05 | XMS_ITS | Encounter Summary ---
Author Organization [facility] Address [address] [place] [address] Care Team Providers Care Senior Client Advisor Name Role Phone Shonda Gillette MD Primary Care Provider Unavail Rosa Isela Dee Primary Care Provider [phone] Desi Veliz APRN Primary Care Provider + [phone] Phuong Blakely MD Unavailable [phone] Encounter Details Date Type Department Care Team (Late st Contact Info) Description 01/18/2020 Slingt Message Enc [facility] Family & Internal Medicine [address] [address] Shonda Gillette MD RE: Question Social History Tobacco Use Types Packs/Day Years Used Date Smoking Tobacco: Never Smokeless Tobacco: Never Alcohol Use Standard Drinks/Week Comments Yes 0 (1 standard drink = 0.6 oz pur e alcohol) OCCAS Comments No Sex and Gender Information Value Date Recorded Sex Assigned at Not on file Legal Sex Female 2:56 PM CDT Gender Identity Not on file Sexual Orientation Not on file documented as of this encounter Plan of Treatment Not on file documented as of this encounter Visit Diagnoses Not on filedocumented in this encounter Care Teams Senior Client Advisor Relationship Specialty Start Date End Date Shonda Gillette MD PCP - General INTERNAL MEDICINE 10/10/19 05/16/20 Rosa Isela Sneed FNP PCP - General Nurse Practitioner Family 05/17/2010/21 Desi Veliz APRN [facility] [place] [address] PCP - General NURSE PRACTITIONER 06/15/24 Phuong Blakely MD [address] [facility] [address] [facility] [place] [address] INTERVENTIONAL CARDIOLOGY 06/15/24 documented as of this encounter
--- OUTSIDE RECORDS SUMMARY | 2024-10-28 09:05 | XMS_ITS | Referral Summary ---
Author Organization [facility] Address [address] [place] [address] Care Team Providers Care Direct Mail Marketer Name Role Phone Courtney Loving RN Unavailable [phone] Leelee Browne MD Unavailable Source Comments [facility],non-owned Affiliates and Associated Physician Practices is amultiple site organization consisting of ambulatory clinics and hospital sitesin [place], [place], [place] and [place]. This disclosure is being madepursuant to the Care Everywhere program and may not contain all information available regarding this patient. Last updated 18.[facility] Allergies Active Allergy Reactions Criticality Noted Date Comments Banana Itching 04/14/2012 Throat itches Peanut Butter Flavor Anaphylaxis High 07/20/2012 Tree Nuts Anaphylaxis High 07/01/2018 Medications * Be aware that medications may not be up to date on this document. Alwaysverify current medications with the patient. Medication Sig Dispensed Refills Start Date End Date Status Loratadine (CLARITIN) 10 MG CAPS Take by mouth once daily. Active ethyndiol diacetate-ethinyl estradiol (DEMULEN ; KELNOR ; ZOVIA ) 1-35 MG-MCG tablet Take 1 tablet by mouth once daily 12/17/2017 Active Melatonin 2.5 MG Take by mouth as needed Active Cyanocobalamin (B-12 PO) Active Active Problems Problem Noted Date Diagnosed Date Migraine 06/08/2014 Allergic rhinitis 06/08/2014 Overview (06/13/2015): Pyelonephritis, acute 05/29/2014 Social History Tobacco Use [...] Mass Index 20.25 07/01/2020 4:25 PM CDT Functional Status Functional Status Response Date of Assess ment Is person deaf or have serious hearing difficult y? No 05/26/2014 Is person blind or have serious difficulty seein g? No 05/26/2014 Does person have serious dif ficulty walking/climbing stairs? No 05/26/2014 Does person have difficulty dressing/bathing? No 05/26/2014 Does person have difficulty doing errands alone? No 05/26/2014 Cognitive Status Response Date of Assessm ent Does person have difficulty concentrating/remembering/making decisions? No 05/26/2014 Plan of Treatment Not on file Administered Medications Advance Directives * Full Code (Latest Code Status on File) Date Activated Date Inactivated Comments 05/26/2014 3:49 AM 05/29/2014 4:19 PM Care Teams Direct Mail Marketer Relationship Specialty Start Date End Date Courtney Loving, RN Turn Operator 05/28/14 Leelee Browne MD Referring Physician Obstetrics and Gynecology 06/08/14
--- OUTSIDE RECORDS SUMMARY | 2024-10-28 09:05 | XMS_ITS | Clinical Summary ---
Author Organization [facility] Address [address] [place] [address] Care Team Providers Care Content Engineer Name Role Phone Courtney Loving RN Unavailable [phone] Leelee Browne MD Unavailable Source Comments [facility],non-owned Affiliates and Associated Physician Practices is amultiple site organization consisting of ambulatory clinics and hospital sitesin [place], [place], [place] and [place]. This disclosure is being madepursuant to the Care Everywhere program and may not contain all information available regarding this patient. Last updated 18.[facility] Allergies Active Allergy Reactions Criticality Noted Date Comments Banana Itching 04/14/2012 Throat itches Peanut Butter Flavor Anaphylaxis High 07/20/2012 Tree Nuts Anaphylaxis High 07/01/2018 Medications * Be aware that medications may not be up to date on this document. Always verify current medications with the patient. Medication Sig [...] rhinitis 06/08/2014 Overview (06/13/2015): Pyelonephritis, acute 05/29/2014 Family History Medical History Relation Name Comments Migraine Brother Hypertension Father Migraine Father CAD (Coronary Artery Disease) Maternal Grandfather from [place] in 40s Arthritis - Osteo Maternal Grandmother COPD - Chronic Obstructive P ulmonary Disease Maternal Grandmother Hypercholesterolemia Mother Hypertension Mother Migraine Mother Renal Disease Paternal Grandfather kidney failure Cancer Paternal Grandmother Relation Name Status Comments Brother Alive Father Maternal Grandfather Maternal Grandmother Mother Alive Paternal Grandfather Paternal Grandmother Social History Tobacco Use Types Packs/Day Years [...] Mass Index 20.25 07/01/2020 4:25 PM CDT Plan of Treatment Health Maintenance Due Date Last Done Comments HIV SCREENING 11/17/2010 HEPATITIS C SCREENING 11/13/2013 DTAP/TDAP/TD VACCINES (1 - Tdap) 11/17/2014 HEPATITIS B VACCINE (1 of 3 - 19+ 3-dose series) 11/17/2014 PAP SMEAR 12/20/2021 12/20/2018, 12/20/2018 COVID-19 VACCINE (1 - 2023-2 5 season) 2024 INFLUENZA VACCINE (#1) 2024 07/06/2017 DEPRESSION SCREENING 09/13/2024 ZOSTER VACCINE (1 of 2) 11/17/2045 HIB VACCINE Aged Out No longer eligi ble based on patient's age to complete this topic HPV VACCINE Aged Out No longer eligi ble based on patient's age to complete this topic MENINGOCOCCAL (Group B) VACCINE Aged Out No longer eligible b ased on patient's age to complete this topic MENINGOCOCCAL VACCINE Aged Out No amaya eleuterio eligible based on patient's age to complete this topic PNEUMOCOCCAL VACCINE Aged Out No long er eligible based on patient's age to complete this topic Advance Directives * Full Code (Latest Code Status on File) Date Activated Date Inactivated Comments 05/26/2014 3:49 AM 05/29/2014 4:19 PM Care Teams Content Engineer Relationship Specialty Start Date End Date Courtney Loving RN Mortuary Beautician 05/28/14 Leelee rBowne MD Referring Physician Obstetrics and Gynecology 06/08/14
--- OUTSIDE RECORDS SUMMARY | 2024-10-28 09:05 | XMS_ITS | Clinical Summary ---
Author Organization [facility] Address [address] [place] [address] Care Team Providers Care Entry Level Name Role Phone Desi Veliz APRN Primary Care Provider Phuong Blakely MD Unavailable [phone] Allergies Active Allergy Reactions Criticality Noted Date Comments Banana Itching 04/14/2012 Throat itches Throat itches Latex Itching 02/12/2019 BURNING SENSATION Nuts Anaphylaxis High 07/01/2018 Peanut Butter Flavoring Agent (Non-Screening) Anaphylaxis High 07/20/2012 Peanut-Containing Drug Products Throat swelling 02/12/2019 Medications loratadine 10 MG tablet Take 10 mg by mouth daily. Active Cyanocobalamin (VITAMIN B-12 OR) Active ethynodiol-ethin yl estradiol 1-35 MG-MCG tablet Take 1 tablet by mouth daily. 8 Active cyclobenzaprine 10 MG tablet 9 Active sumatriptan 25 MG tabletIndication s:Chronic migraine without aura without status migrainosus, not intractable Take 1 tablet (25 mg total) by mouth 2 (two) times daily as needed for Migraine (1 tablet at onset of headache. Can take additional 1 tablet 1 hour later if still have headache.). 10 tablet 1 0 Active AMITRIPTYLINE 10 MG tabletIndication s:JOLENE (generalized anxiety disorder),Insomn ia due to other mental disorder,Chronic migraine without aura without status migrainosus, not intractable TAKE 1 TABLET(10 MG) BY MOUTH EVERY NIGHT AT BEDTIME 30 tablet 0 Active dicyclomine (BENTYL) 20 MG tablet Take 1 tablet (20 mg total) by mouth every 6 (six) hours. 20 tablet 4 Active ondansetron (ZOFRAN) 4 MG tablet Take 1 tablet (4 mg total) by mouth every 8 (eight) hours as needed for Nausea. 20 tablet 4 Active pantoprazole EC (PROTONIX) 40 MG tablet Take 1 tablet (40 mg total) by mouth daily. 30 tablet 4 Active Active Problems Problem Noted Date Diagnosed Date JOLENE (generalized anxiety disorder) 10/10/2019 Assessment & Plan (10/10/2019 8:51 AM BIOMETRY TEACHER): Will try low dose amitriptyline and discuss con't exercise. May need to add another SSRI or SNRi or switch depnding on how she does Insomnia due to other mental disorder 10/10/2019 Assessment & Plan (10/10/2019 8:52 AM BIOMETRY TEACHER): Encouraged good sleep hygiene and hopefully treating underlying anxiety will help Chronic migraine without aur a without status migrainosus, not intractable 10/10/2019 Assessment & Plan (10/10/2019 8:50 AM BIOMETRY TEACHER): Every other day so will try amitryptaline low dose as I think it may help with a lot of her other issues as well. Will also try low dose imitrex and inc as tolerated as she seems to be sensitive to medication Chronic midline low back pain with right-sided s ciatica 10/10/2019 Family History Medical History Relation Comments Hypertension Mother Relation Status Comments Father Mother Alive Social History Tobacco Use Types Packs/Day Years [...] Sign Reading Time Taken Comments Blood Pressure 111/60 06/15/2024 6:29 PM CDT Pulse 92 06/15/2024 6:29 PM CDT Temperature 36.7 C (98 F) 06/15/2024 6:29 PM CDT Respiratory Rate 16 06/15/2024 6:29 PM CDT Oxygen Saturation 98% 06/15/2024 6:29 PM CDT Inhaled Oxygen Concentration - - Weight 53.5 kg (118 lb) 06/15/2024 3:24 PM CDT Height 162.6 cm (5' 4 ) 06/15/2024 3:24 PM CDT Body Mass Index 20.25 06/15/2024 3:24 PM CDT Plan of Treatment Health Maintenance Due Date Last Done Comments Cervical Cancer Screening Pap Smear (Age 21 to 29) Every 3 Years 1995 Cervical Cancer Screening 1995 Annual Physical 11/17/1998 Hepatitis C 11/17/2013 HPV Vaccines (2 - 3-dose series) 06/19/2014 05/22/2014 COVID-19 Vaccine ( season) 2024 11/23/2020, 10/25/2020 Influenza Adult (#1) 2024 07/06/2017 DTaP, Tdap and Td Vaccines (7 - Td or Tdap) 06/04/2028 06/04/2018, 12/17/2000, 02/28/1997, Additional history exists Hepatitis B Vaccines Completed 05/20/1996, 01/12/1996, 1995 Meningococcal Vaccine Aged Out 07/05/2017, 008 No longer eligible based on patient's age to complete this topic Meningococcal B Vaccine Aged Out No l onger eligible based on patient's age to complete this topic Pneumococcal Vaccine: Pediatrics (0 to 5 Years) and At-Risk Patients (6 to 64 Years) Aged Out No longer eligible based on patient's age to complete this topic RSV Immunizations Under 20 Months Aged Out No longer eligible based on patient's age to complete this topic Insurance [facility] Care Teams Entry Level Relationship Specialty Start Date End Date Desi Veliz APRN [address] [place] [address] PCP - General NURSE PRACTITIONER 06/15/24 Phuong Blakely MD [address] [facility] [address] [place], [place] [id number] INTERVENTIONAL CARDIOLOGY 06/15/24
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
--- OUTSIDE RECORDS SUMMARY | 2024-10-28 09:05 | XMS_ITS | Encounter Summary ---
Author Organization [facility] Address [address] [place] [address] Care Team Providers Care Manager Marketing Sales Name Role Phone Shonda Gillette MD Primary Care Provider Unavail Rosa Isela Dee Primary Care Provider [phone] Desi Veliz APRN Primary Care Provider + [phone] Phuong Blakely MD Unavailable [phone] Encounter Details Date Type Department Care Team (Late st Contact Info) Description 01/04/2020 [place] In[place] Message Enc [facility] Family & Internal Medicine [address] [address] Shonda Gillette MD RE: FW: Question Social History Tobacco Use Types Packs/Day [...] on filedocumented in this encounter Care Teams Manager Marketing Sales Relationship Specialty Start Date End Date Shonda Gillette MD PCP - General INTERNAL MEDICINE 10/10/19 05/16/20 Rosa Isela Sneed FNP PCP - General Nurse Practitioner Family 05/17/2010/21 Desi Veliz APRN [facility] [place] [address] PCP - General NURSE PRACTITIONER 06/15/24 Phuong Blakely MD [address] [facility] [address] [facility] [place] [address] INTERVENTIONAL CARDIOLOGY 06/15/24 documented as of this encounter
--- OUTSIDE RECORDS SUMMARY | 2024-10-28 09:05 | XMS_ITS | Clinical Summary ---
Author Organization [facility] [place] [address] [place] [id number] Care Team Providers Care Second Steward Name Role Phone Desi Veliz NP Primary Care Provider [phone] Allergies Active Allergy Reactions Criticality Noted Date Comments Apple Other (See comments) Low 03/24/2023 Itchy mouth Banana Itching Low 04/14/2012 Throat itches Latex Itching Low 02/12/2019 BURNING SENSATION Nuts Anaphylaxis High 07/01/2018 Peanut Shellfish Containing Products Other (See comments) Low 03/24/2023 Itchy mouth Tree Nuts Anaphylaxis High 07/01/2018 Medications multivitamin capsule Take 1 capsule by mouth as needed Active triamcinolone (KENALOG) 0.1 % lotion as needed 01/08/20 21 Active cetirizine (ZyrTEC) 10 mg tabletIndications: Chronic rhinitis,Chronic frontal sinusitis,Chronic nonintractable headache, unspecified headache type Take 1 tablet (10 mg total) by mouth daily 30 tablet 2 01/22/20 23 Active fluticasone propionate (FLONASE) 50 mcg/actuation nasal sprayIndications:C hronic rhinitis,Chronic frontal sinusitis,Chronic nonintractable headache, unspecified headache type Administer 2 sprays into each nostril daily 1 each 2 01/22/20 23 Active meclizine (ANTIVERT) 12.5 mg tabletIndications: Vertigo Take 1-2 tablets TID prn for vertigo 30 tablet 1 12/07/19 24 Active Additional Information Patient taking differently: As needed, Take 1-2 tablets TID prn for vertigo, Reported on 05/25/2024 diphenhydrAMINE HCL 25 mg tablet,disintegrat ing Take 25 mg by mouth as needed Active Active Problems Problem Noted Date Diagnosed Date Tachycardia 12/13/2023 Assessment & Plan (12/13/2023 11:17 AM CDT): New diagnosis EKG done with no abnormal findings An echocardiogram and Holter monitor were ordered, was advised to call number provided to schedule tests Instructed to go to ER if chest pain, agreed to contract for safety Chest pressure 12/13/2023 Assessment & Plan (12/13/2023 11:17 AM CDT): New diagnosis EKG done with no abnormal findings An echocardiogram and Holter monitor were ordered, was advised to call number provided to schedule tests Instructed to go to ER if chest pain, agreed to contract for safety Multiple food allergies 07/26/2023 Assessment & Plan (12/07/2023 8:19 AM CDT): Encouraged to carry EpiPen at all times Assessment & Plan (07/26/2023 2:50 PM TELEMARKETING AGENT): Reviewed results of allergen testing dated 03/24/2023 Instructed to carry Auvi-Q at all times and to avoid offending foods Chronic midline low back pain with right-sided s ciatica 07/26/2023 Assessment & Plan (12/07/2023 8:20 AM CDT): Chronic, waxes and wanes Continued on Tylenol PRN and Epsom salt soaks, gets regular massages Can consider xrays lumbar spine and PT if/when interested Assessment & Plan (07/26/2023 2:53 PM TELEMARKETING AGENT): Chronic, currently asymptomatic Advised if low back pain returns, and does not resolve with Tylenol, can try ibuprofen or Alleve, heat alternating with ice, and/or topical analgesics such as Wilian-Humphreys, BioFreeze or lidocaine patch Chronic ethmoidal sinusitis 01/23/2023 Assessment & Plan (12/07/2023 8:25 AM CDT): Chronic, stable, controlled on medication Continued on Zyrtec and Flonase Assessment & Plan (04/02/2023 11:22 AM CDT): Chronic, stability unknown, with CT head in 2020 with minimal mucosal thickening in ethmoid sinuses, recently diagnosed with environmental allergens-encouraged to follow-up with ENT as needed and paint process engineer as recommended. Assessment & Plan (02/21/2023 9:47 AM CDT): Chronic, stable, uncontrolled, on Zyrtec and Flonase, however did not start Singulair due to concern regarding side effects-continued on Zyrtec and Flonase. Encouraged to keep appointment with paint process engineer on 03/24/23. Assessment & Plan (01/23/2023 8:13 AM CDT): Chronic, stable-started on Zyrtec, Singulair, and Flonase. Referral made to paint process engineer. Fatigue 01/23/2023 Assessment & Plan (12/07/2023 8:26 AM CDT): Chronic, waxes and wanes, nothing out of the ordinary, attributes to stress Reviewed 02/16/23 labs, normal Assessment & Plan (04/02/2023 11:23 AM CDT): Chronic, stable, with recent normal CBC and TSH level-will monitor for stability. Assessment & Plan (02/21/2023 9:46 AM CDT): Chronic, stable, with recent normal CBC and TSH level, denies symptoms of sleep apnea-will monitor for worsening symptoms. Started on buspirone for anxiety, may improve sleep, and subsequently, may feel less fatigued. Assessment & Plan (01/23/2023 8:12 AM CDT): Chronic, stable-ordered CBC and TSH level. Lipid screening 01/23/2023 Diabetes mellitus screening 01/23/2023 Encounter for vitamin deficiency screening 01/23 JOLENE (generalized anxiety disorder) 01/23/2023 Assessment & Plan (12/13/2023 11:18 AM CDT): Chronic, uncontrolled on medication, dose increased at last visit, has not started yet Continued on buspirone 7.5 mg BID Assessment & Plan (12/07/2023 8:29 AM CDT): Chronic, uncontrolled on medication Increased dose of buspirone to 7.5 mg BID Assessment & Plan (07/26/2023 2:48 PM TELEMARKETING AGENT): Chronic, uncontrolled, not on medication, previously prescribed buspirone Recommended restarting buspirone 5 mg 2-3 times daily Assessment & Plan (04/02/2023 11:24 AM CDT): Chronic, improved on medication-continued on buspirone 5 mg twice daily with option to increase to 5 mg TID or 7.5 mg twice daily. Assessment & Plan (02/21/2023 9:45 AM CDT): Chronic, uncontrolled, not on medication-started on buspirone 5 mg twice daily. Informed can adjust dose of medication in 2 weeks if no perceived improvement in anxiety. Recommended follow-up in 4 weeks, sooner if needed. Assessment & Plan (01/23/2023 8:23 AM CDT): Chronic, stability unknown, not on medication, PHQ-9-7, JOLENE-7=16, denies depression-will monitor for worsening symptoms, not interested in medication or counseling at this time. Vertigo 09/30/2022 Assessment & Plan (12/07/2023 7:31 PM CDT): Chronic, episodic, usually notices in the AM upon awaking Continued on meclizine as directed as needed, refills sent to pharmacy per request Assessment & Plan (04/02/2023 11:28 AM CDT): Chronic, stability unknown, with CT head in 2020 with minimal mucosal thickening in ethmoid sinuses, recently diagnosed with environmental allergens-encouraged to follow-up with ENT as needed and paint process engineer as recommended. Assessment & Plan (02/21/2023 9:49 AM CDT): Chronicity unknown, stable-continued on meclizine as directed as needed for vertigo, and advised can refer for physical therapy if vertigo persists. Encouraged to follow-up with neuro-dough sheeter as recommended by ENT. Assessment & Plan (09/30/2022 6:50 PM TELEMARKETING AGENT): The vertigo that she describes is typically accompanied with light sensitivity and headache. I think it is probably a vertebrobasilar migraine. I am recommending further evaluation and I am going to send her to 1 of the neuro otologists. She would like to go ahead and pursue that. Referral is being made. Chronic nonintractable headache 09/30/2022 Assessment & Plan (12/07/2023 8:24 AM CDT): Chronic, episodic Continued on Zyrtec and Flonase Eat every 2-3 hours Find ways to manage stress, relaxation techniques, going for a walk, listening to music, do yoga Assessment & Plan (04/02/2023 11:22 AM CDT): Chronic, stability unknown, with CT head in 2020 with minimal mucosal thickening in ethmoid sinuses, recently diagnosed with environmental allergens-encouraged to follow-up with ENT as needed and paint process engineer as recommended. Assessment & Plan (02/21/2023 9:51 AM CDT): Chronic, stable, likely multifactorial, with CT dated 06/11/21 with no acute intracranial abnormality, notable for minimal mucosal thickening in ethmoid sinuses-continued on Zyrtec and Flonase and encouraged consultation with Neurology as previously recommended. Assessment & Plan (01/23/2023 8:13 AM CDT): Chronic, stable-started on Zyrtec, Singulair, and Flonase. Referral made to paint process engineer. Assessment & Plan (09/30/2022 6:50 PM TELEMARKETING AGENT): She has fairly chronic headache which I think her probably muscle tension headaches. I think she also has overlapping migraine headaches which cause a lot of her vertigo and visual changes. I think she may need to consider further evaluation, possibly a neurologist. I suspect preventative medication would be helpful. She understands this. As far as her constant ear pressure is concerned I think that it could be some element of cervical strain due to poor posture. She might benefit from physical therapy for that. Preventative health care 05/22/2021 Assessment & Plan (12/07/2023 7:31 PM CDT): Reviewed past and current medical history, surgical history, social history, family history, current medications, and allergies. The chart was updated to identify any changes in these areas. A ROS and PE were performed. Medication was refill. Discussed well woman exam/cervical cancer screening, monthly breast self-exams, and recommended immunizations. Patient will follow-up annually for a PE, sooner if needed. Assessment & Plan (04/02/2023 11:26 AM CDT): Reviewed past and current medical history, surgical history, social history, family history, current medications, and allergies. The chart was updated to identify any changes in these areas. A ROS and PE were performed. Medications and labs were ordered and referrals were made. Patient will follow-up in three-months for further evaluation and management or sooner if needed. Assessment & Plan (05/22/2021 9:46 AM CDT): Currently off bc, periods are on longer side but regular Basic labwork done 11/2020- next bath due in 1 year from now at next annual Flu shot recommended this flu season utd on pap Easy bruising 03/27/2021 Assessment & Plan (12/07/2023 8:16 AM CDT): Chronic, stable Reviewed 02/16/23 PT, aPTT, and CBC, no abnormal finding Assessment & Plan (04/02/2023 11:23 AM CDT): Chronicity and stability unknown, with recent normal CBC, PT/INR, and aPTT. Assessment & Plan (03/27/2021 10:08 AM CDT): Check cbc and coags Irritable bowel syndrome with constipation 11/14 Assessment & Plan (12/07/2023 8:13 AM CDT): Chronic, stable Encouraged to continue to incorporate fiber-rich foods in to diet, goal for fiber is 25-30 grams of fiber a day Advised to stay adequately hydrated, 64 oz minimum fluid intake daily Assessment & Plan (04/02/2023 11:25 AM CDT): Chronic, stability unknown, started on buspirone for anxiety, with improvement in anxiety symptoms-will monitor for subsequent improvement in IBS/constipation with better control of anxiety. Assessment & Plan (01/23/2023 8:15 AM CDT): Chronic, stable, partially responsive to pre-and probiotic and caffeine- encouraged to increase dietary fiber for goal of at least 25-30 g per day. Can use MiraLax as directed as needed. Also discussed Linzess 72 mcg daily as an option for treatment, not interested at this time. Assessment & Plan (12/11/2020 7:59 AM CDT): Advised drinking >64 oz of water daily, startiong pre/postbiotic and daily miralax If no improvement after 1 month, would consider bentyl v GI referral Assessment & Plan (11/14/2020 9:31 AM TELEMARKETING AGENT): miralax and inc water intake, probiotic Seasonal allergic rhinitis due to pollen 014 Overview (03/24/2023): Skin testing 04/04 + trees, ragweed > grass, weeds, molds, dust mite. Assessment & Plan (12/07/2023 8:14 AM CDT): Chronic, stable, controlled on medication Continued on Zyrtec and Flonase Assessment & Plan (07/26/2023 2:50 PM TELEMARKETING AGENT): Chronic, stable, controlled with medication Continued on Flonase Encouraged to follow-up with paint process engineer as recommended Assessment & Plan (04/02/2023 11:27 AM CDT): Chronic, stability unknown, recently diagnosed with environmental allergens- continued on cetirizine and Flonase and encouraged to follow-up with paint process engineer as recommended. Assessment & Plan (02/21/2023 9:52 AM CDT): Chronic, stable, uncontrolled, on Zyrtec and Flonase, however did not start Singulair due to concern regarding side effects-continued on Zyrtec and Flonase. Encouraged to keep appointment with paint process engineer on 03/24/23. Resolved Problems Problem Noted Date Diagnosed Date Resolved Date Upper respiratory infection with cough and congestion 08/10/2023 12/07/2023 Assessment & Plan (08/10/2023 12:30 PM TELEMARKETING AGENT): Instructed to increase clear liquids, rest, and vitamin C in diet Advised to sleep with head elevated and use a cool mist vaporizer and Vicks VapoRub at bedtime for cough and congestion Recommended follow-up if symptoms don't resolve, ER for new or worsening symptoms Cough 08/10/2023 12/07/2023 Assessment & Plan (08/10/2023 12:29 PM TELEMARKETING AGENT): Tested for COVID-19 and influenza, all negative, see below plan of care for upper respiratory infection with cough and congestion Strain of groin, right, initial encounter 02/21/2023 04/02/2023 Assessment & Plan (02/21/2023 9:58 AM CDT): Acute, symptoms x1 week, no known injury-advised can use ibuprofen as directed as needed, ER for new or worsening symptoms. Chronic rhinitis 01/23/2023 03/24/2023 Assessment & Plan (02/21/2023 9:52 AM CDT): Chronic, stable, uncontrolled, on Zyrtec and Flonase, however did not start Singulair due to concern regarding side effects-continued on Zyrtec and Flonase. Encouraged to keep appointment with paint process engineer on 03/24/23. Assessment & Plan (01/23/2023 8:13 AM CDT): Chronic, stable-started on Zyrtec, Singulair, and Flonase. Referral made to paint process engineer. Urine frequency 01/23/2023 02/21/2023 Assessment & Plan (01/23/2023 8:12 AM CDT): Acute, resolved at time of visit, but occurred early last month-performed urine POCT test with trace leukocytes, sent for culture and sensitivity if indicated. Suprapubic cramping 01/23/2023 02/22/20 Assessment & Plan (01/23/2023 8:13 AM CDT): Acute, resolved at time of visit, but present earlier this week-performed urine POCT test with trace leukocytes, sent for culture and sensitivity if indicated. Ordered serum hCG level. Encounter to establish care 01/23/2023 02/18/2023 Assessment & Plan (01/23/2023 8:17 AM CDT): Reviewed past and current medical history, surgical history, social history, family history, current medications, and allergies. A ROS and PE were performed. Medications and labs were ordered and a referrals was made. Patient will follow-up in 4 weeks for annual physical exam, sooner if needed. Abnormal auditory perception of both ears 09/30/2022 12/07/2023 Assessment & Plan (04/02/2023 11:20 AM CDT): Chronicity and stability unknown-if perceived worsening, will refer to ENT for further evaluation and management. Assessment & Plan (09/30/2022 6:53 PM TELEMARKETING AGENT): I reviewed her hearing test with her and it was normal. I also indicated that her ear exam was normal and showed no evidence of inflammation or other problems. She might have some perception of hearing loss due to cervical strain. Elevated ALT measurement 05/22/202107/2023 Assessment & Plan (05/22/2021 9:47 AM CDT): Suspect transient, will recheck to verify Physical exam unremarkable for any liver pathology Acute non-recurrent ethmoidal sinusitis 03/27/2021 01/23/2023 Assessment & Plan (05/22/2021 9:45 AM CDT): Now chronic sinusitis/eustachian tube dysfunction- advise she see ent, referral placed Flonase, ocean nasal spray and claritin still Assessment & Plan (03/27/2021 10:07 AM CDT): Effecting Left ear abx x10 days Flonase, ocean nasal spray in the meantime Arthralgia of right hand 03/27/2021 Assessment & Plan (04/02/2023 11:20 AM CDT): Chronicity and stability unknown-will monitor for worsening symptoms. Assessment & Plan (03/27/2021 10:08 AM CDT): With easy bruising, mom tested positive for ISABELLA- seeing a rheum, pt requesting to check AI labs Synovial cyst of right popliteal space 12/13/2020 12/07/2023 Assessment & Plan (04/02/2023 11:27 AM CDT): Chronicity and stability unknown-will monitor for symptoms including right knee pain. Assessment & Plan (12/13/2020 2:22 PM CDT): Suspect these is cyst or just inflammation of the joint-in this young active patient with no risk or co-morbidities highly do no suspect DVT particularly since it is bilaterally the same. I suspect this is from over use and john cyst which will likely reduce on its on own with anti-inflammatories, and compression Dysmenorrhea 11/14/2020 12/07/2023 Assessment & Plan (04/02/2023 11:22 AM CDT): Chronicity and stability unknown-deferred to gynecology. Assessment & Plan (11/14/2020 9:25 AM TELEMARKETING AGENT): labwork ordered Dysphagia 11/14/2020 04/02/2023 Assessment & Plan (02/21/2023 10:01 AM CDT): Chronic, stable, likely related to chronic rhinitis/sinusitis and PND/globus sensation-encouraged to keep follow-up with paint process engineer. If symptoms do not improve with treatment, can consider referral to twisting frame operator for further evaluation and management. Assessment & Plan (12/11/2020 7:59 AM CDT): Seems gastritis related, cont prilosec Assessment & Plan (11/14/2020 9:30 AM TELEMARKETING AGENT): Starting prilosec x2 weeks If no improvement would refer to GI for consideration egd Gastritis diet given Flank pain 11/14/2020 04/02/2023 Assessment & Plan (11/14/2020 9:31 AM TELEMARKETING AGENT): Suspect dt constipation Us to r/o renal/spleen issues Immunizations Name Administration Dates Next Due DTaP 5 Pertussis 12/17/2000, 7,05/20/1996,03/13,01/12/1996 HPV, Quadrivalent 05/22/2014 Hep A, Unspecified 03/27/2005,11/29/2003 Hep B, Unspecified 05/20/1996,01/12/1996, 996 HiB 02/28/1997, 6,03/13/1996,01/11 IPV 05/20/1996,03/13/1996,01/12/1996 Influenza, Trivalent, IM (MDV) 07/06/2017 Influenza, Unspecified 12/07/2023(Deferr ed: Patient Refused),08/10/2023(Deferred: Patient Refused),07/26/2023(Deferred: Patient Refused) MMR 12/17/2000,11/17/1996 Meningococcal ACWY, Unspecified 02/28/2008 Meningococcal MCV4P (Menactra) 07/05/2017 Moderna SARS-CoV-2 Monovalen t Vaccination (12+ YRS) 11/23/2020,10/25/2020 Tdap 06/04/2018 Varicella 04/02/2011,11/17/1996 Surgical History Surgery Date Site/Laterality Comments WISDOM TOOTH EXTRACTION 09/13/2017 - 09/12/2018 NEVUS EXCISION COSMETIC SURGERY Medical History Medical History Date Comments Ovarian cyst 2012 Kidney infection 2013 GERD (gastroesophageal reflux disease) Anemia Anxiety Migraines Allergic rhinitis Ear problems Dizziness Tinnitus Sinusitis Family History Medical History Relation Name Comments Allergy (severe) Brother Grzegorz Leger Diverticulitis Father Mello Leger Hypertension Father Mello Leger Migraines Father Mello Leger Other Father Mello Leger Heart attack Maternal Grandfather Levy Packer GERD Mother Nathan Leger Hyperlipidemia Mother Nathan Leger Migraines Mother Nathan Leger Mitral valve prolapse Mother Nathan Leger Diabetes Paternal Grandfather Relation Name Status Comments Brother Grzegorz Leger Father Mello Leger Maternal Grandfather Levy Packer Mother Nathan Leger Alive Paternal Grandfather Social History Tobacco Use Types Packs/Day Years Used Date Smoking Tobacco: Never Smokeless Tobacco: Never Tobacco Cessation:Counseling Given: Not Answered AUDIT-C Answer Date Recorded Q1: How often do you have a drink containing alc ohol? 2-4 times a month 03/24/2023 Average Number of Drinks Not on file 023 Frequency of Binge Drinking Not on file 03/13 PHQ-2 Answer Date Recorded PHQ-2 Total Score (If total score is 3 or more points, staff should administer the PHQ-9) 0 03/31/2023 Personal Safety Answer Date Recorded Getting School Help Needed Not on file 10/15 Comments No Sex and Gender Information Value Date Recorded Sex Assigned at Not on file Legal Sex Female 7:35 PM TELEMARKETING AGENT Gender Identity Female 09/28/2022 9:20 AM TELEMARKETING AGENT Sexual Orientation Not on file Obstetrics History Last Filed Vital Signs Vital Sign Reading Time Taken Comments Blood Pressure 115/81 05/25/2024 3:25 PM CDT Pulse 86 05/25/2024 3:25 PM CDT Temperature 36.9 C (98.5 F) 12/13/2023 9:58 AM CDT Respiratory Rate 14 12/13/2023 9:58 AM CDT Oxygen Saturation 99% 05/25/2024 3:25 PM CDT Inhaled Oxygen Concentration - - Weight 63.6 kg (140 lb 3.2 oz) 05/25/2024 3:25 P M CDT Height 165 cm (5' 4.96 ) 12/13/2023 9:58 AM CDT Body Mass Index 23.36 12/13/2023 9:58 AM CDT Plan of Treatment Health Maintenance Due Date Last Done Comments HPV Vaccines (2 - 3-dose series) 06/19/2014 05/22/2014 Depression Screening 03/31/2024 03/31/2023, 03/31/2023, 02/18/2023, Additional history exists Covid-19 Vaccine ( season) 2024 11/23/2020, 10/25/2020 Influenza Vaccine (#1) 2024 07/06/2017 Regular Well Visit/Exam 18-64 12/06/2024 12/07/2023, 03/31/2023, 05/22/2021 Cervical Cancer Screening 02/17/20252021, 02/13/2020, 12/08/2016, Additional history exists DTaP/Tdap/Td Vaccine (7 - Td or Tdap) 06/04/2028 06/04/2018, 12/17/2000, 02/28/1997, Additional history exists Hepatitis B Screening Completed 05/20/1996 , 01/12/1996, 1995 Varicella Vaccines Completed 04/02/2011, 11/17/1996 Hepatitis C Screening Completed 01/24/2014 Pneumococcal vaccine <65 Aged Out No longer eligible based on patient's age to complete this topic Procedures Procedure Name Priority Date/Time Associated Diagnosis Comments THINPREP PAP Routine 02/17/2022 SERUM HEPATITIS PANEL Routine 01/24/2014 5:40 PM CDT from Last 3 Months or Most Recently Relevant to Health Maintenance Results * ThinPrep Pap (02/17/2022) 02/17/2022 us Historical Provider MD LAB PATHOLOGY ORDERABLES Final Result * Serum Hepatitis panel (01/24/2014 5:40 PM CDT) HBV surface ag Negative Negative HISTO RICAL RESULTS HBV core ab, IgM Negative Negative HISTORICAL RESULTS HCV ab Negative Negative HISTORICAL RESULTS HAV ab, IgM Negative Negative HISTORIC AL RESULTS Serum 01/24/2014 5:40 PM CDT Denise Ramirez DO LAB BLOOD ORDERABLES Final Result HISTORICAL RESULTS from Last 3 Months or Most Recently Relevant to Health Maintenance Insurance [employer] [facility] PLUS Care Teams Second Steward Relationship Specialty Start Date End Date Desi Veliz NP [address] [place] [id number] PCP - General Family Practice 01/21/23
--- OUTSIDE RECORDS SUMMARY | 2024-10-28 09:05 | XMS_ITS | Referral Summary ---
Author Organization [facility] [place] [address] [place] [id number] Care Team Providers Care Surgical Territory Manager Name Role Phone Desi Veliz NP Primary Care Provider [phone] Allergies Active Allergy Reactions Criticality Noted Date [...] times Assessment & Plan (07/26/2023 2:50 PM COMMUNICATIONS ADMINISTRATOR): Reviewed results of allergen testing dated 03/24/2023 [...] interested Assessment & Plan (07/26/2023 2:53 PM COMMUNICATIONS ADMINISTRATOR): Chronic, currently asymptomatic Advised if low back [...] to follow-up with ENT as needed and dietary server as recommended. Assessment & Plan (02/21/2023 9:47 AM CDT): Chronic, stable, uncontrolled, on Zyrtec and Flonase, however did not start Singulair due to concern regarding side effects-continued on Zyrtec and Flonase. Encouraged to keep appointment with dietary server on 03/24/23. Assessment & Plan (01/23/2023 8:13 AM CDT): Chronic, stable-started on Zyrtec, Singulair, and Flonase. Referral made to dietary server. Fatigue 01/23/2023 Assessment & Plan (12/07/2023 8:26 [...] BID Assessment & Plan (07/26/2023 2:48 PM COMMUNICATIONS ADMINISTRATOR): Chronic, uncontrolled, not on medication, previously prescribed [...] to follow-up with ENT as needed and dietary server as recommended. Assessment & Plan (02/21/2023 9:49 AM CDT): Chronicity unknown, stable-continued on meclizine as directed as needed for vertigo, and advised can refer for physical therapy if vertigo persists. Encouraged to follow-up with neuro-monument setter helper as recommended by ENT. Assessment & Plan (09/30/2022 6:50 PM COMMUNICATIONS ADMINISTRATOR): The vertigo that she describes is typically [...] to follow-up with ENT as needed and dietary server as recommended. Assessment & Plan (02/21/2023 9:51 AM CDT): Chronic, stable, likely multifactorial, with CT dated 06/11/21 with no acute intracranial abnormality, notable for minimal mucosal thickening in ethmoid sinuses-continued on Zyrtec and Flonase and encouraged consultation with Neurology as previously recommended. Assessment & Plan (01/23/2023 8:13 AM CDT): Chronic, stable-started on Zyrtec, Singulair, and Flonase. Referral made to dietary server. Assessment & Plan (09/30/2022 6:50 PM COMMUNICATIONS ADMINISTRATOR): She has fairly chronic headache which I [...] referral Assessment & Plan (11/14/2020 9:31 AM COMMUNICATIONS ADMINISTRATOR): miralax and inc water intake, probiotic Seasonal allergic rhinitis due to pollen 014 Overview (03/24/2023): Skin testing 04/04 + trees, ragweed > grass, weeds, molds, dust mite. Assessment & Plan (12/07/2023 8:14 AM CDT): Chronic, stable, controlled on medication Continued on Zyrtec and Flonase Assessment & Plan (07/26/2023 2:50 PM COMMUNICATIONS ADMINISTRATOR): Chronic, stable, controlled with medication Continued on Flonase Encouraged to follow-up with dietary server as recommended Assessment & Plan (04/02/2023 11:27 AM CDT): Chronic, stability unknown, recently diagnosed with environmental allergens- continued on cetirizine and Flonase and encouraged to follow-up with dietary server as recommended. Assessment & Plan (02/21/2023 9:52 AM CDT): Chronic, stable, uncontrolled, on Zyrtec and Flonase, however did not start Singulair due to concern regarding side effects-continued on Zyrtec and Flonase. Encouraged to keep appointment with dietary server on 03/24/23. Resolved Problems Problem Noted Date Diagnosed Date Resolved Date Upper respiratory infection with cough and congestion 08/10/2023 12/07/2023 Assessment & Plan (08/10/2023 12:30 PM COMMUNICATIONS ADMINISTRATOR): Instructed to increase clear liquids, rest, and vitamin C in diet Advised to sleep with head elevated and use a cool mist vaporizer and Vicks VapoRub at bedtime for cough and congestion Recommended follow-up if symptoms don't resolve, ER for new or worsening symptoms Cough 08/10/2023 12/07/2023 Assessment & Plan (08/10/2023 12:29 PM COMMUNICATIONS ADMINISTRATOR): Tested for COVID-19 and influenza, all negative, [...] and Flonase. Encouraged to keep appointment with dietary server on 03/24/23. Assessment & Plan (01/23/2023 8:13 AM CDT): Chronic, stable-started on Zyrtec, Singulair, and Flonase. Referral made to dietary server. Urine frequency 01/23/2023 02/21/2023 Assessment & Plan [...] management. Assessment & Plan (09/30/2022 6:53 PM COMMUNICATIONS ADMINISTRATOR): I reviewed her hearing test with her [...] gynecology. Assessment & Plan (11/14/2020 9:25 AM COMMUNICATIONS ADMINISTRATOR): labwork ordered Dysphagia 11/14/2020 04/02/2023 Assessment & Plan (02/21/2023 10:01 AM CDT): Chronic, stable, likely related to chronic rhinitis/sinusitis and PND/globus sensation-encouraged to keep follow-up with dietary server. If symptoms do not improve with treatment, can consider referral to senior process control tech for further evaluation and management. Assessment & Plan (12/11/2020 7:59 AM CDT): Seems gastritis related, cont prilosec Assessment & Plan (11/14/2020 9:30 AM COMMUNICATIONS ADMINISTRATOR): Starting prilosec x2 weeks If no improvement would refer to GI for consideration egd Gastritis diet given Flank pain 11/14/2020 04/02/2023 Assessment & Plan (11/14/2020 9:31 AM COMMUNICATIONS ADMINISTRATOR): Suspect dt constipation Us to r/o renal/spleen [...] (12+ YRS) 11/23/2020,10/25/2020 Tdap 06/04/2018 Varicella 04/02/2011,11/17/1996 Social History Tobacco Use Types Packs/Day Years [...] on file Legal Sex Female 7:35 PM COMMUNICATIONS ADMINISTRATOR Gender Identity Female 09/28/2022 9:20 AM COMMUNICATIONS ADMINISTRATOR Sexual Orientation Not on file Last Filed [...] 12/13/2023 9:58 AM CDT Plan of Treatment Not on file Procedures Procedure Name Priority Date/Time Associated Diagnosis Comments THINPREP PAP Routine 02/17/2022 SERUM HEPATITIS PANEL Routine 01/24/2014 5:40 PM CDT from Last 3 Months or Most Recently Relevant to Health Maintenance Results * ThinPrep Pap (02/17/2022) 02/17/2022 Historical Provider MD LAB PATHOLOGY ORDERABLES Final [...] Most Recently Relevant to Health Maintenance Insurance [employer] [place] [address] Manufacturers' Inventory [facility] HMO/PPO Address: [address] [address] [place] [address] Care Teams Surgical Territory Manager Relationship Specialty Start Date End Date Desi Veliz NP [address] [place] [id number] PCP - General Family Practice 01/21/23
[2024-10-28 09:13] VITALS: BP 142/78; PULSE 118; RESP 18; TEMP 37.7; O2SAT 100
--- NOTE | 2024-10-28 09:20 | ED_ITS ---
HPI - URI/Sore Throat General Chief Complaint: Upper Respiratory Infection Stated Complaint: flu symptoms Time Seen by Provider: 10/28/24 09:05 Source: patient Mode of arrival: ambulatory Limitations: no limitations History of Present Illness HPI Narrative: Patient is a 28-year-old female that presents with 2 days of body aches, chills, nonproductive cough congestion. [facility] but has had 10 days of symptom relief. 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 Denies any fever, nausea, vomiting, diarrhea. Related Data Allergies Allergy/AdvReac Type Severity Reaction Status Date / Time nut - unspecified Allergy Anaphylaxis Verified 10/28/24 09:23 Review of Systems Review of Systems: All systems reviewed & are unremarkable except as noted in HPI and below Constitutional: Constitutional: Reports chills, Denies fatigue, Denies fever(s), Denies headache(s), Denies malaise and Denies weakness Eyes: Eyes: Denies blurry vision, Denies itchy eyes and Denies loss of vision ENT: Denies otalgia, Denies headache(s), Reports nasal congestion, Denies sinus pain and Denies sore throat Cardiovascular: Cardiovascular: Denies chest pain, Denies irregular heart rhythm and Denies dyspnea Respiratory: Respiratory: Reports cough and Denies dyspnea Gastrointestinal: Gastrointestinal: Denies abdominal pain, Denies diarrhea, Denies nausea and Denies vomiting Musculoskeletal: Musculoskeletal: Denies back pain, Reports myalgias and Denie s arthralgias Integumentary/Breasts: Skin/Breast: Denies pruritus and Denies rash Neurologic: Denies headache(s), Denies loss of vision and Denies weakness Psychiatric: Psychiatric: Reports no additional psychiatric complaints Endocrine: Endocrine: Denies fatigue Allergic/Immunologic: Allergic/Immunologic: Denies itchy eyes PMFSH Social History Social History Smoking status: Never smoker Alcohol intake: current Alcohol use details: Social Substance use: never Occupation/Education: occupation Gender identity (if verbalized by the patient): Female Spiritual care concerns: No Comments At time of signature, agree with nursing past medical, surgical, social and family history. There is no relevant family history pertinent to the presenting complaint. Exam Const: General: cooperative, healthy appearing, comfortable, no acute distress and well nourished Nutritional Appearance: well nourished Orientation/consciousness: patient oriented x3 Limitations: no limitations HENMT: Head: normal to inspection, normocephalic and atraumatic Ears: hearing grossly normal bilaterally, external ears normal, TM's normal bilaterally, EAC's normal and no periauricular adenopathy Face/Nose/Sinus: Normal external nose present, Abnormal mucous membranes and turbinates present erythematous bilateral and diffuse, normal facial exam, sinuses nontender and face symmetric Face and sinus: normal facial exam, sinuses nontender and face symmetric Mouth: Yes Normal oral and palatal mucosa present, Yes lip normal, Yes tongue normal, Yes Normal salivary glands and ducts present, Yes oropharynx normal and Yes moist mucous membranes Teeth and gingiva: dentition normal Throat: posterior oropharynx normal, tonsils normal and uvula midline Eyes: General: appearance normal, both eyes and all related structures Alignment and Position: alignment normal and position normal Periorbital: periorbital findings normal Eyelids: eyelids normal Pupils: Equal, round and reactive pupils present Neck: Neck: normal visual inspection, full ROM, no lymphadenopathy and supple Chest: Chest palpation & inspection: normal inspection of the chest and normal palpation of entire chest wall Resp: Effort & Inspection: normal respiratory effort and able to speak in complete sentences Auscultation: clear to auscultation bilaterally, no crackles, no rales, no rhonchi and no wheezes Cardio: Rate: tachycardic Rhythm: regular rhythm Heart sounds: S1 normal heart sound present and S2 normal heart sound present GI: Inspection: normal to inspection Skin: General skin exam: normal color and no rashes or lesions noted Neuro: General: patient oriented x3 and moves all extremities Cranial nerves: Yes Equal, round and reactive pupils present Speech: normal speech Gait exam (Neuro): Normal gait present Extrem: General: normal to inspection, full ROM and no edema Psych: Appearance: grossly normal and well kempt Mental Status: mental status grossly normal Speech and movement: Normal speech and movement present Affect: normal affect Attitude: cooperative Thought process: Normal thought process present Course Course Emergency Course: Discharge instructions reviewed with patient, as well as provided in writing per nursing staff. The instructions also include specific and strict return/GO TO THE ER as well as f/u information. All questions have been answered, and the patient deny any further questions with discharge and discharge plan. Portions of this record may have been created with voice recognition software Level of Care: Express Care Visit Vital Signs Vital signs: Vital Signs Temperature 37.7 C H 10/28/24 09:13 Pulse Rate 118 H 10/28/24 09:13 Respiratory Rate 18 10/28/24 09:13 Blood Pressure 142/78 H 10/28/24 09:13 Pulse Oximetry 100 10/28/24 09:13 Oxygen Delivery Room Air 10/28/24 09:13 Temperature 37.7 C H 10/28/24 09:13 Pulse Rate 118 H 10/28/24 09:13 Respiratory Rate 18 10/28/24 09:13 Blood Pressure 142/78 H 10/28/24 09:13 Pulse Oximetry 100 10/28/24 09:13 Oxygen Delivery Room Air 10/28/24 09:13 Reviewed MDM - URI/Sore Throat MDM Narrative Medical decision making narrative: Pt well hydrated appearing, in no respiratory distress, hemodynamically stable. Recommend supportive care. The patient is stable at time of discharge the clinical impression was discussed and the patient was given the opportunity to ask questions, which were addressed as completely as possible given the information available at present. Anticipatory guidance and return to care precautions were discussed and the importance of primary care follow-up was stressed and encouraged. The patient voiced understanding of the plan, indications to return, and the need for follow-up. Differential diagnosis considered: Pereyra virus, strep pharyngitis, allergic rhinitis, upper respiratory tract infection, sinusitis, rhinosinusitis, nasopharyngitis. viral pharyngitis, otitis media, otitis externa, otitis effusion, foreign body, cerumen impaction, viral syndrome, and influenza.? Exam findings show no acute concerns or changes; patient is non-toxic appearing and is in no distress.? Patient is appropriate for outpatient treatment and follow- up.? Medical Records Attestation: I reviewed the patient's medical records. Lab Data Attestation: I reviewed the patient's lab results. Labs: Lab Results 10/28/24 Range/Units 09:45 POC Influenza A Ag Positive (Negative) POC Influenza B Ag Negative (Negative) POC SARS CoV-2 Ag Negative (Negative) Discharge Plan Discharge Clinical Impression: Influenza Patient Disposition: Home, Self-Care Condition: Stable Instructions: Influenza (ED) Additional Instructions: Were positive for influenza A. Your Covid is negative Your symptoms are due to a viral illness, which is not treated with antibiotics. Viral symptoms can be present for up to a few weeks. -For fever/pain, you may take: Tylenol 650-1000mg by mouth every 4-6 hours. Do not exceed 4000mg in 24 hours. Advil (Ibuprofen) 600 mg by mouth every 6 hours. Do not exceed 2400mg in 24 hours. 8 AM: Tylenol 11 AM: Ibuprofen 2 PM: Tylenol 5 PM: Ibuprofen 8 PM: Tylenol 11 PM: Ibuprofen 2 AM: Tylenol 5 AM: Ibuprofen -Antihistamine medication such as Benadryl/Zyrtec at night and Claritin/Lvaern during the day can help improve symptoms. -Use Flonase twice a day for 5 days then daily to help reduce the inflammation and dry up your sinuses. -You can also use Sudafed behind the pharmacy counter(12 or 24 hour). Be sure to drink plenty of water with these medications at least 8 ounces with every dose and it is important to drink 8 to 10 glasses of water per day. Water is a natural decongestant -Eat and drink things that are easy to swallow, like tea or soup, or popsicles. -Oral rinses such as: Salt water gargles and/or may use topical anesthetic (eg. Chloraseptic spray) or lozenges to relieve dryness or throat pain). -Frequent hand washing or hand hearing healthcare practitioner is one of the best ways to prevent spread of infection. -Using a vaporizer or humidifier at night will also help thin secretions and help with coughing up phlegm. -Follow up with primary care provider in 3-5 days if condition is not improving - For new or worsening symptoms go directly to the nearest ER My retention discharge Patient Language: Nepali Prescriptions: New benzonatate 100 mg capsule 100 mg PO BID PRN (Reason: cough) Qty: 14 0RF fluticasone propionate [Flonase Allergy Relief] 50 mcg/actuation spray,suspension 1 spray intranasal DAILY Qty: 16 0RF Rx Instructions: administer into each nostril Follow-up/Referrals: Jose Alfredo,Desi, PRIVATE ADVISOR [Primary Care Provider] - 3 Days Time of Disposition: 09:47
[2024-10-28 09:47] LABS: EDCOVIDSCREEN Negative (Negative); EDINFLUASCREEN Positive (Negative); EDINFLUBSCREEN Negative (Negative)
== END 2024-10-28 09:53 | disposition home or self-care (01) ==
PROVIDERS: Emergency Provider Nurse Practitioner Family; PCP Family Medicine
DX: J11.1 Influenza due to unidentified influenza virus with other respiratory manifestations (principal); Z20.822 Contact with and (suspected) exposure to COVID-19
CPT/HCPCS: 87426; 87804; 99213; G0463